=== PATIENT | male | born 1965 | race African-American/Black ===

== ENCOUNTER 2024-11-20 13:36 | Emergency (ER) | payer MEDICAID, OTHER ==
[~2024-11-20] VITALS: Ht 167.6 cm; Wt 68.0 kg
[2024-11-20 13:56] VITALS: O2SAT 100
[2024-11-20] MEDS: CYCLOBENZAPRINE 10MG TABLET PO ONE (15:05)
[2024-11-20] MEDS: IBUPROFEN 600MG TABLET PO ONE (15:06)
[2024-11-20] MEDS: LIDOCAINE 5% PATCH TOP ONE (15:10)
[2024-11-20] MEDS ORDERED: CYCL10TA21 MT (16:55)
[2024-11-20] MEDS ORDERED: KETO10TA2 MT (16:55)
[2024-11-20] MEDS ORDERED: LIDO700A30 TP (16:55)
[2024-11-20 17:29] VITALS: BP 130/86; PULSE 50; RESP 16; TEMP 37; O2SAT 100
== END 2024-11-20 17:40 | disposition home or self-care (01) ==
LOC: ER 13:36
DX: M54.2 Cervicalgia (principal); M25.511 Pain in right shoulder; M25.561 Pain in right knee; V43.62XA Car passenger injured in collision with other type car in traffic accident, initial encounter; Y93.89 Activity, other specified; Y92.410 Unspecified street and highway as the place of occurrence of the external cause; Y99.8 Other external cause status
CPT/HCPCS: 72040; 73030; 73560; 99284